=== PATIENT | male | born 1960 | race Two or more races ===

== ENCOUNTER 2022-07-26 06:37 | Emergency (ER) | payer BC ==
[~2022-07-26] VITALS: Ht 175.3 cm; Wt 86.2 kg
[~2022-07-26 06:37] MED LIST: ROSU5TAB PO
--- NOTE | 2022-07-26 06:50 | NUR ---
[id number]. L SIDE ABDOMINAL PAIN X 2 HR. +N-V. HAVE THE URGE TO HAVE BM LAST BM YETERDAY. 01/19 [place] RADIATING TO THE BACK. PT A/OX3. TOLERATING R/A WELL WITH NO RESP DISTRESS. SAFETY MEASURES IN PLACE.
[2022-07-26] MEDS ORDERED: ONDANSETRON HCL/PF 4 MG/2 ML VIAL ONE (07:21)
[2022-07-26] MEDS ORDERED: KETOROLAC TROMETHAMINE INJ 30 MG/ML VIAL ONE ×3 (07:21→09:24)
[2022-07-26] MEDS ORDERED: IV NS 0.9% 1,000 ML BAG IV ONE (07:30)
[2022-07-26] MEDS ORDERED: ONDANSETRON HCL/PF 4 MG/2 ML VIAL IVP ONE (07:30)
[2022-07-26] MEDS ORDERED: KETOROLAC TROMETHAMINE INJ 30 MG/ML VIAL IV ONE ×2 (07:30→09:30)
[2022-07-26 07:41] LABS: BASOPHILS # (AUTO) 0.1 K/uL (0.0-0.2); BASOPHILS % (AUTO) 0.8 % (0.0-2.0); HEMATOCRIT 43 % (39-51); HEMOGLOBIN 13.9 g/dL (13.5-17.5); LYMPHOCYTES # (AUTO) 1.1 K/uL (0.8-4.8); LYMPHOCYTES % (AUTO) 10.2 % (20.0-44.0); MEAN CORPUSCULAR HGB CONC 33 g/dl (31.0-36.0); MEAN CORPUSCULAR VOLUME 91 fL (80-96); MONOCYTES # (AUTO) 0.6 K/uL (0.1-1.30); MONOCYTES % (AUTO) 5.6 % (2.0-12.0); NEUTROPHILS % (AUTO) 82.4 % (43.0-81.0); PLATELET COUNT (AUTO) 196 K/uL (150-450); RED BLOOD CELL COUNT(AUTO) 4.66 MIL/uL (4.5-6.0); WHITE BLOOD COUNT (AUTO) 10.9 K/uL (4.3-11.0)
[2022-07-26 07:46] LABS: BILIRUBIN,URINE NEGATIVE (NEGATIVE); COLOR,URINE YELLOW (YELLOW); LEUKOCYTE ESTERASE ,URINE NEGATIVE (NEGATIVE); NITRITE, URINE NEGATIVE (NEGATIVE); PROTEIN,URINE TRACE mg/dl (NEGATIVE); UGLUCOSE NEGATIVE (NEGATIVE); UROBILINOGEN,URINE 0.2 EU/dL (0.2)
[2022-07-26 07:52] LABS: CALCIUM, SERUM 9.4 mg/dL (8.5-10.1); CREATININE 1.1 mg/dL (0.6-1.3)
[2022-07-26 07:58] LABS: ALBUMIN 4.2 g/dL (3.4-5.0); BILIRUBIN,DIRECT 0.2 mg/dL (0.0-0.2); BILIRUBIN,TOTAL 0.6 mg/dL (0.2-1.0); TOTAL PROTEIN, SERUM 7.7 g/dL (6.4-8.2)
[2022-07-26] MEDS ORDERED: CT SWABBABLE VALVE TRANS SET 1 EA INFUS.SET MC ONE (08:07)
[2022-07-26] MEDS ORDERED: IOHEXOL-300 100 ML VIAL IV ONE (08:07)
[2022-07-26] MEDS ORDERED: IV NS 0.9% 250 ML IV ONE (08:07)
[2022-07-26] MEDS ORDERED: TRAMADOL HCL 50 MG TABLET ONE (08:28)
[2022-07-26] MEDS ORDERED: TRAMADOL HCL 50 MG TABLET PO ONE (08:30)
[2022-07-26 08:41] LABS: BACTERIA,URINE None seen /HPF (None Seen); RBC,URINE 0-2 /HPF (0-2); SQUAMOUS EPITHELIAL CELL,UR None Seen /HPF (None Seen); WBC,URINE 0-2 /HPF (0-3)
[2022-07-26 08:42] LABS: CALCIUM OXALATE CRYSTALS,UR Rare /HPF (None Seen); HYALINE CASTS, URINE Rare /LPF (None Seen); MUCUS,URINE Rare /LPF (None Seen)
[2022-07-26] MEDS ORDERED: ONDA4TAB11 PO (09:04)
[2022-07-26] MEDS ORDERED: KETO10TA2 PO (09:04)
[2022-07-26] MEDS ORDERED: TAMS-12 PO (09:07)
--- NOTE | 2022-07-26 09:43 | NUR ---
IV removed. Catheter intact and site benign. Pressure and 4x4 applied to site. No bleeding noted.
--- NOTE | 2022-07-26 09:44 | NUR ---
Patient discharged to home in stable condition. Written and verbal after care instructions given. Patient verbalizes understanding of instruction.
[2022-07-26 09:45] VITALS: BP 156/81
== END 2022-07-26 09:49 | disposition home or self-care (01) ==
LOC: ER 06:49
DX: N20.0 Calculus of kidney (principal); E78.00 Pure hypercholesterolemia, unspecified; Z79.899 Other long term (current) drug therapy
CPT/HCPCS: 99285; 74177; 96374; 96361; 96375; 96376; 85025; 80048; 83690; 80076; 81001; 36415; J1885 ×2; J2405; J7030; J7050; Q9967